=== PATIENT | female | born 1970 | race Hispanic/Latino ===

== ENCOUNTER → 2024-09-06 | Day surgery (SDC) | payer OTHER ==
[~2024-09-06] MED LIST: ATORVASTATIN CA20 MG PO; BUPROPION HCL75 MG PO; FENTANYL CITRATE/PF 100MCG/2 ML INJ ONE; LIDOCAINE HCL 2% LOCAL INJ 5 ML SDV VIAL INJ ONE; LISINOPRIL10 MG PO; METFORMIN HCL500 MG PO; MIDAZOLAM HCL 2 MG/2 ML VIAL ONE; PHENYLEPHRINE HCL 1% 10 MG/ML VIAL ONE; PROPOFOL IV EMULSION 10 MG/ML 20 ML VIAL ONE; VITAMIN B-121000 MCG PO
[2024-09-06] MEDS: LACTATED RINGER'S 1,000 ML ONE (12:10)
[2024-09-06 14:40] VITALS: TEMP 98.4
[2024-09-06 14:55] VITALS: BP 150/78; PULSE 78; RESP 16; O2SAT 99
== END | disposition home or self-care (01) ==
LOC: OR 05:00
PROVIDERS: ATTEND Internal Medicine Gastroenterology
DX: Z12.11 Encounter for screening for malignant neoplasm of colon (principal); D12.2 Benign neoplasm of ascending colon; D12.8 Benign neoplasm of rectum; K31.7 Polyp of stomach and duodenum; K29.50 Unspecified chronic gastritis without bleeding; K44.9 Diaphragmatic hernia without obstruction or gangrene; K21.9 Gastro-esophageal reflux disease without esophagitis; K59.00 Constipation, unspecified; K62.5 Hemorrhage of anus and rectum; K57.30 Diverticulosis of large intestine without perforation or abscess without bleeding; K64.8 Other hemorrhoids; I10 Essential (primary) hypertension; E78.5 Hyperlipidemia, unspecified; E11.9 Type 2 diabetes mellitus without complications; E66.01 Morbid (severe) obesity due to excess calories; F41.9 Anxiety disorder, unspecified; Z01.810 Encounter for preprocedural cardiovascular examination; Z79.1 Long term (current) use of non-steroidal anti-inflammatories (NSAID); Z79.84 Long term (current) use of oral hypoglycemic drugs; Z79.899 Other long term (current) drug therapy; Z68.41 Body mass index [BMI] 40.0-44.9, adult; Z80.0 Family history of malignant neoplasm of digestive organs
CPT/HCPCS: 36415; 43239; 43251; 45384; 45385; 82948; 88305; 88342; 93005; J2003; J2250; J2371; J2704; J3010; J7121

== ENCOUNTER → 2024-09-30 | Outpatient (REF) | payer OTHER ==
[~2024-09-30] MED LIST changes: -FENTANYL CITRATE/PF 100MCG/2 ML INJ ONE; -LIDOCAINE HCL 2% LOCAL INJ 5 ML SDV VIAL INJ ONE; -MIDAZOLAM HCL 2 MG/2 ML VIAL ONE; -PHENYLEPHRINE HCL 1% 10 MG/ML VIAL ONE; -PROPOFOL IV EMULSION 10 MG/ML 20 ML VIAL ONE
== END ==
LOC: US 11:28
PROVIDERS: ATTEND Internal Medicine
DX: N95.0 Postmenopausal bleeding (principal)
CPT/HCPCS: 76830